=== PATIENT | female | born 1955 | race Caucasian/White ===

== ENCOUNTER 2017-01-11 15:43 | Emergency (ER) | payer BC ==
[2017-01-11 16:08] VITALS: BP 140/80
[2017-01-11] MEDS ORDERED: LIDOCAINE HCL 20 ML UDC PO ONE (16:17)
[2017-01-11] MEDS ORDERED: MAG HYDROX/ALUMINUM HYD/SIMETH 30 ML UDC PO ONE (16:17)
--- NOTE | 2017-01-11 16:18 | ERNOTE ---
Medical Problem HPI - Narrative Date of Service: 01/11/17 - 1630 - General Chief Complaint: Foreign Body Source: patient - Immun/Allergies/Home Medications Immunizations: IMMUNIZATION HX Immunizations Up to Date Yes Allergies/Adverse Reactions: Allergies pentazocine [From [facility]] Adverse Reaction (Verified 01/11/17 16:07) Home Medications: HOME MEDICATIONS NK [No Home Medication] 01/11/17 [Last Taken Unknown] - History of Present History Narrative: feels like something is stuck in right side of throat for approximately two hours. Pt is well able to swallow saliva and is not regurgitating. She did have some chips and states that she may have scratched the area. No hemoptysis and well able to swallow water and secretions - Patient's Past Medical History Patient History - Medical: No pertinent hx Patient History - Cardiac/Respiratory: No pertinent hx Patient History - Cancer: No Hx of Cancer Patient History - Surgical Procedures: Other - Social History Smoking Status: Never smoker Have you smoked in the past 12 months: No - Immunizations Immunizations Up to Date: Yes Physical Exam - Physical Exam General Appearance: Present: wd/wn, alert, no apparent distress Ears, Nose, Throat: Present: normal ENT inspection, normal pharynx Neck: Present: normal inspection, nontender, supple, full range of motion Respiratory: Present: no respiratory distress, normal breath sounds, no accessory muscle use, chest nontender, lungs clear Cardiovascular/Chest: Present: regular rate, rhythm, no murmur, normal peripheral pulses ED Progress - Vital Signs Patient's Vital Signs:: I have reviewed the patient's vital signs. Vital Signs: Vital Signs 01/11/17 16:05 Temperature 37.5 C Pulse Rate 75 Respiratory 14 Rate Blood Pressure 140/80 O2 Sat by Pulse 98 Oximetry - X-Ray X-Ray #1 X-Ray: neck soft tissue - Progress/Reassessment Chief Complaint: Foreign Body Plan - Plan Plan: case was discussed with Dr. Capellan and he will see pt in clinic tomorrow. Pt is WELL able to swallow liquids. Departure - Departure Clinical Impression: Feared condition not demonstrated Disposition: Home self-care Condition: Good Additional Instructions: Go see Dr. Capellan in clinic tomorrow Referrals: Charlette Victor MD [Primary Care Provider] -
--- OUTSIDE RECORDS SUMMARY | 2017-01-11 16:35 | XMS REPORT | Continuity of Care Document ---
:1955 Author Organization [facility] ([facility]) Address [address] [place] [address] Phone [phone] Care Team Providers Name Role Phone Charlette Victor Primary Care Provider [phone] Source Comments This disclosure is being made pursuant to the Care Everywhere program, applicable federal and state laws, and may not contain all informaitonavailable regarding this patient.[facility] ([facility]) Active Allergies and Adverse Reactions No Known Allergies Current Medications Prescription Sig. Disp. Refills Start Date End Date Status ERGOCALCIFEROL, Take by mouth. Active VITAMIN D2, (VITAMIN D PO) CALCIUM Take by mouth. Active CARBONATE/VITAMIN D3 (CALCIUM + D PO) [place]-3 Fatty Acids Take by mouth. Active (FISH OIL) 300 mg Cap LORATADINE (CLARITIN Take by mouth as Active PO) needed. multivitamin tablet Take 1 Tab by mouth Active daily. polyethylene glycol Take 2 scoop TID till 510 g 11 08/02/2015 Active 3350 (MIRALAX) 17 bowels are clear then gram/dose powder one scoop daily barium sulfate PLEASE REFER TO THE 250 mL 0 08/21/2015 Active (READI-CAT 2) 2.1% CT COLONOGRAPHY EXAM oral suspension INSTRUCTION SHEET ON HOW TO TAKE THIS MEDICATION. diatrizoates meglumine .PLEASE REFER TO THE 60 mL 0 08/21/2015 Active & sodium CT COLONOGRAPHY (-GASTROVIEW) ( INSTRUCTION SHEET TO GASTR[place]IEW) 66-10% TAKE THIS MEDICATION. solution magnesium citrate PLEASE REFER TO THE 296 mL 0 08/21/2015 Active (CITROMA) solution CT COLONOGRAPHY EXAM INSTRUCTION SHEET ON HOW TO TAKE THIS MEDICATION. Active Problems Problem Noted Date Actinic keratosis 12/02/2011 Social History Tobacco Use Types Packs/Day Years Used Date Never Smoker Smokeless Tobacco: Never Used Tobacco Cessation:Counseling Given: Yes Comments: Last Filed Vital Signs Vital Sign Reading Time Taken Blood Pressure 127/77 08/02/2015 2:36 PM CDT Pulse 70 08/02/2015 2:36 PM CDT Temperature 36.4 C (97.5 F) 08/02/2015 2:36 PM CDT Respiratory Rate - - Height 1.702 m (5' 7.01") 08/02/2015 2:36 PM CDT Weight 63.2 kg (139 lb 5.3 oz) 08/02/2015 2:36 PM CDT Body Mass Index 21.82 08/02/2015 2:36 PM CDT Oxygen Saturation - - Plan of Care Health Maintenance Due Date Last Done Comments HCV Screening 1955 Hepatitis B Vaccine (1 of 3 - Primary Series) 1955 Tdap Vaccine 1968 Lipid Disorder Screening 1975 MMR Vaccine 1975 Td Vaccine 1975 Cervical Cancer Screening 1987 Colonoscopy 2007 Influenza Vaccine: Seasonal (#1) 05/11/2016 Mammogram 07/15/2016 07/15/2015 Results from Last 3 Months Not on file
== END 2017-01-11 17:17 | disposition home or self-care (01) ==
LOC: ER 15:43
DX: Z71.1 Person with feared health complaint in whom no diagnosis is made (principal)